=== PATIENT | female | born 1975 | race Caucasian/White ===

== ENCOUNTER 2025-05-01 10:53 | Outpatient (CLI) | payer OTHER, SELFPAY ==
--- NOTE | ~2025-05-01 | MM_ITS ---
EXAMINATION: MM diagnostic luis BI w tiff HISTORY: Bilateral axillary tenderness, improving TECHNIQUE: 3-D tomosynthesis images of the breasts were performed and synthetic 2-D images were generated. CAD analysis was submitted and interpreted. COMPARISON: None BREAST PARENCHYMAL COMPOSITION:Dense: The breasts are heterogeneously dense, which may obscure small masses. FINDINGS: Parenchymal pattern of both breasts is unremarkable. No suspicious mass lesion or distortion seen. No suspicious microcalcification. IMPRESSION: No mammographic evidence for malignancy. BI-RADS Category 1: Negative Reviewed, dictated and finalized at location .
--- OUTSIDE RECORDS SUMMARY | 2025-05-01 11:00 | XMS_ITS | Clinical Summary ---
Author Organization [facility] Address [address] Henriquezn: Epic Prelude ADT OCTAVIO KILLIAN [address] Care Team Providers Care Riding Silks Custodian Name Role Phone Unavailable Primary Care Provider Unavailabl e Allergies No known active allergies Medications famotidine (PEPCID) 40 mg tablet Take 1 Tablet (40 mg) by mouth at bedtime. 30 Tablet 3 05/09/2022 4:18 PM CDT 2 Active famotidine (PEPCID) 40 mg tablet Take 1 Tablet (40 mg) by mouth daily at bedtime. 30 Tablet 3 09/09/2022 12:10 PM LEARNING TECHNOLOGIST 2 Active levonorgestreL- ethinyl estrad (ALESSE) 0.1-20 mg-mcg tablet Take 1 Tablet by mouth daily. ( ACTIVE TABLETS CONTINUOUSLY) 112 Tablet 4 10/08/2023 2:12 PM LEARNING TECHNOLOGIST 3 Active levonorgestreL- ethinyl estrad (Falmina, 28,) 0.1-20 mg-mcg tablet TAKE 1 ACTIVE TABLET DAILY CONTINUOUSLY. 112 Tablet 3 09/13/2024 2:21 PM LEARNING TECHNOLOGIST 4 Active pantoprazole (PROTONIX) 40 mg Tablet, Delayed Release (E.C.) Take 1 Tablet (40 mg) by mouth daily. 30 Tablet 5 4 Active pantoprazole (PROTONIX) 40 mg Tablet, Delayed Release (E.C.) Take 1 Tablet (40 mg) by mouth daily. 30 Tablet 3 04/16/2024 3:01 PM CDT 4 Active PARoxetine HCl (PAXIL) 10 mg tablet Take 1 Tablet (10 mg) by mouth daily. 30 Tablet 4 Active pantoprazole (PROTONIX) 40 mg Tablet, Delayed Release (E.C.) Take 1 Tablet (40 mg) by mouth daily. 30 Tablet 07/17/2024 2:41 PM LEARNING TECHNOLOGIST 4 Active levonorgestreL- ethinyl estrad (Falmina, 28,) 0.1-20 mg-mcg tablet Take 1 Tablet by mouth daily. Skip placebo tablets. 112 Tablet 12/10/2024 4:17 PM CDT 5 Active Drospirenone-Et hinyl estradiol (Anel, 28,) 3-0.02 mg tablet Take 1 Tablet by mouth daily continuously, skipping placebos. 112 Tablet 3 04/13/2025 7:04 PM CDT 5 Active famotidine (PEPCID) 40 mg tablet Take 1 Tablet (40 mg) by mouth daily at bedtime. 30 Tablet 04/13/2025 7:04 PM CDT 5 Active pantoprazole (PROTONIX) 40 mg Tablet, Delayed Release (E.C.) Take 1 Tablet (40 mg) by mouth daily. 30 Tablet 04/17/2025 7:14 PM CDT 5 Active famotidine (PEPCID) 40 mg tablet Take 1 Tablet (40 mg) by mouth daily at bedtime. 30 Tablet 03/18/2025 4:21 PM CDT 5 04/09/20 25 Discontinu ed(Reorder ) pantoprazole (PROTONIX) 40 mg Tablet, Delayed Release (E.C.) Take 1 Tablet (40 mg) by mouth daily. 30 Tablet 03/19/2025 6:44 PM CDT 5 04/09/20 25 Discontinu ed(Reorder ) Encounters Date Type Department Care Team Description 02/10/2025 External Device Data STL ABSTRACTION Provider, Abstract from Last 3 Months Social History Tobacco Use Types Packs/Day Years Used Date Smoking Tobacco: Never Assessed Comments Unknown Sex and Gender Information Value Date Recorded Sex Assigned at Not on file Legal Sex Female 9:23 PM CDT Gender Identity Not on file Sexual Orientation Not on file Plan of Treatment Health Maintenance Due Date Last Done Comments DTAP/TDAP/TD VACCINES (1 - Tdap) 1995 HEPATITIS B VACCINES (1 of 3 - 19+ 3-dose series) 07/11 HPV/Cotest (21-29) 1997 CERVICAL CANCER SCREENING 2006 HPV/Cotest (30-65) 2006 PAP SMEAR 2006 BREAST CANCER SCREENING 2016 COLORECTAL SCREENING 2021 Colorectal Cancer Screening 2021 FIT-DNA Q 3 years 2021 FIT/FOBT Q 1 year 2021 Flex Sig/CT Colonography Q 5 years 2021 INFLUENZA VACCINE (#1) 2025 Insurance RX [employer] (INTERNAL) [facility] [employer] Commercial
--- OUTSIDE RECORDS SUMMARY | 2025-05-01 11:00 | XMS_ITS | Clinical Summary ---
Author Organization [facility] Address [address] [place] [address] Care Team Providers Care Actionscript Developer Name Role Phone Lara Deal MD Primary Care Provider [phone] Source Comments [facility],non-owned Affiliates and Associated Physician Practices is amultiple site organization consisting of ambulatory clinics and hospital sitesin [place], [place]. This disclosure is being madepursuant to the Care Everywhere program and may not contain all information available regarding this patient. Last updated 18.[facility] [employer] Allergies No known active allergies Active Problems Problem Noted Date Diagnosed Date Injury, other and unspecified, knee, leg, ankle, and foot 10/13/2009 Immunizations Immunization Administration Dates Next Due DT 10/13/2009 Social History Tobacco Use Types Packs/Day Years Used Date Smoking Tobacco: Never Assessed Comments Unknown Sex and Gender Information Value Date Recorded Sex Assigned at Not on file Legal Sex Female 8:29 AM VISUAL BASIC DEVELOPER Gender Identity Not on file Sexual Orientation Not on file Last Filed Vital Signs Vital Sign Reading Time Taken Comments Blood Pressure 121/90 10/13/2009 7:44 PM VISUAL BASIC DEVELOPER Pulse 99 10/13/2009 7:44 PM VISUAL BASIC DEVELOPER Temperature 36.2 C (97.1 F) 10/13/2009 7:44 PM VISUAL BASIC DEVELOPER Respiratory Rate 20 10/13/2009 7:44 PM VISUAL BASIC DEVELOPER Oxygen Saturation 100% 10/13/2009 7:44 PM VISUAL BASIC DEVELOPER Inhaled Oxygen Concentration - - Weight 63.5 kg (140 lb) 10/13/2009 7:44 PM VISUAL BASIC DEVELOPER Height 167.6 cm (5' 6) 10/13/2009 7:44 PM VISUAL BASIC DEVELOPER Body Mass Index 22.6 10/13/2009 7:44 PM VISUAL BASIC DEVELOPER Plan of Treatment Health Maintenance Due Date Last Done Comments COLOGUARD (AGES 45-75) - COL ON CA SCREENING 1976 COLON MONITORING 1976 COLONOSCOPY - COLON CA SCREENING 1976 CT COLONOGRAPHY - COLON CA SCREENING 1976 Colorectal Cancer Screening 1976 FIT - COLON CA SCREENING 1976 FLEX SIG - COLON CA SCREENING 1976 LIPID TESTING 1976 MAMMOGRAM 1976 HIV SCREENING 1991 HEPATITIS C SCREENING 07/18/1994 HEPATITIS B VACCINE (1 of 3 - 19+ 3-dose series) 1995 DTAP/TDAP/TD VACCINES (2 - Tdap) 10/13/2019 10/13/19 10 COVID-19 VACCINE (1 - 2023-2 5 season) 2024 DEPRESSION SCREENING 09/10/2024 INFLUENZA VACCINE (#1) 2025 ZOSTER VACCINE (1 of 2) 2026 HIB VACCINE Aged Out No longer eligi ble based on patient's age to complete this topic HPV VACCINE Aged Out No longer eligi ble based on patient's age to complete this topic MENINGOCOCCAL (Group B) VACC INE SHARED DECISION-MAKING Aged Out No longer eligibl e based on patient's age to complete this topic MENINGOCOCCAL GROUPS A/C/Y/W VACCINE Aged Out No longer eligible b ased on patient's age to complete this topic PNEUMOCOCCAL VACCINE Aged Out No long er eligible based on patient's age to complete this topic Care Teams Actionscript Developer Relationship Specialty Start Date End Date Lara Deal MD [address] [place] [address] PCP - General 10/13/09
--- OUTSIDE RECORDS SUMMARY | 2025-05-01 11:00 | XMS_ITS | Patient Health Record ---
Author Organization [facility] Address [address] [place] [address] Care Team Providers Care Student Services Coordinator Name Role Phone Melecio Ross Primary Care Provider [phone] Cherie Millan Unavailable Allergies No Known Allergies Results Component Value Reference Range Notes Lipid Panel* Reviewed date:08/27/2024 09:16:08 AM Interpretation: Performing Lab:[facility] [place], [address] [facility] Phone - [phone], Director - PhDRicchiuti Notes/Report: Cholesterol, Total 198 100-199 mg/dL Triglycerides 101 0-149 mg/dL HDL Cholesterol 60 >39 mg/dL VLDL Cholesterol Bobby 18 5-40 mg/dL LDL Chol Calc (NIH) 120 0-99 mg/dL Reason For Referral Reason uncontrolled acid re flux Diagnosis 1 GERD without esophag itis (K21.9) Referral Organization Replaced by [facility] Referring Provider First Name Cherie Referring Provider Last Name Monty Referring Provider Speciality [facility] Med icine Referred Provider [facility], Gastroenterology Referred Provider Specialty Gastroentero logy General Notes Lakshmi Rust 04/02/2025 08:46:22 AM >Patient request referral be sent to Dr. Gunderson office. Clinical Notes [facility], [address], [place]. [address], , Referral Priority Routine Medications Medication SIG (Take, Route, Frequency, Duration) Notes Start Date End Date Status Famotidine 40 MG Take 1 Tablet (40 mg) by mouth daily at bedtime. Active Pantoprazole Sodium 40 MG Take 1 Tablet (40 mg) by mouth daily. no further refills, will need to establish with GI. Active Drospirenone-Ethinyl Estradiol 3-0.02 MG 1 tablet Orally Once a day Active Social History Tobacco Use: Social History Observation Description Date Details (start date - stop date) Never Smoker NA - NA Sex Assigned At : Social History Observation Description Sex Assigned At Female Dont use, Tobacco Use/Smoking Question Answer Notes Are you a nonsmoker Tobacco Control (Standard) Question Answer Notes Tobacco use: Nonsmoker Problems Problem Type SNOMED Code ICD Code Onset Dates Problem Status W/U Status Risk Notes Problem GERD without esophagitis (K21.9) Active confirmed Vital Signs Heart Rate 90 /min 02/25/2025 Respiratory Rate 16 /min 02/25/2025 Blood pressure diastolic 98 mm Hg 02/25/2025 Oximetry 98 % 02/25/2025 Height 66 in 02/25/2025 Blood pressure systolic 142 mm Hg 02/25/2025 Weight 142.2 lbs 02/25/2025 BMI 22.95 kg/m2 02/25/2025 Encounters Encounter Location Date Provider Diagnosis [address] [place] [address] 08/05/2024 Melecio Ross GERD without esophagitis K21.9 and Lipid screening Z13.220 [facility] [place] [address] 02/25/2025 Cherie Millan GERD without esophagitis K21.[address] [facility] [place] [place] [address] 07/14/2024 Melecio Ross GERD without esophagitis K21.[address] [facility] [place] [place] [address] 02/12/2025 Cherie Millan GERD without esophagitis K21.9 [facility] [address] [place] [address] 02/25/2025 Cherie Millan [facility] [address] [place] [address] 03/18/2025 Cherie Prettyngco GERD without esophagitis K21.9 [facility] [address] [place] [address] 03/20/2025 Cherie Tanwangco GERD without esophagitis K21.9 [facility] [address] [place] [address] 04/09/2025 Cherielaurie Prettyngco GERD without esophagitis K21.9 Assessments Encounter Date Diagnosis (ICD Code) Assessment Notes Treatment Notes Treatment Clinical Notes Section Notes 07/14/2024 GERD without esophagitis (ICD-10 - K21.9) 08/05/2024 Lipid screening (ICD-10 - Z13.220) 08/05/2024 GERD without esophagitis (ICD-10 - K21.9) 02/12/2025 GERD without esophagitis (ICD-10 - K21.9) 02/25/2025 GERD without esophagitis (ICD-10 - K21.9) 03/18/2025 GERD without esophagitis (ICD-10 - K21.9) 03/20/2025 GERD without esophagitis (ICD-10 - K21.9) 04/09/2025 GERD without esophagitis (ICD-10 - K21.9) Plan Of Treatment No Information Insurance Providers Payer Name Payer Address Payer Phone Subscriber Number Group Number Insured Name Patient Relationship to Insured Coverage Start Date Coverage End Date [facility] Claims Department [address] [place] [address] [phone] [id number] Emilia Blackwell Self - patient is the insured Medical (General) History Surgical History Surgery Date(Month/Year) tonsillectomy oral surgery Hospitalization History Reason Date(Month/Year)
== END 2025-05-01 10:54 | disposition home or self-care (01) ==
LOC: ANHFOHIMG 10:56
PROVIDERS: PCP Nurse Practitioner Family; Visit Provider Nurse Practitioner
DX: N64.4 Mastodynia (principal)
CPT/HCPCS: 77062; 77066; G0279